=== PATIENT | male | born 1965 | race Caucasian/White ===

== ENCOUNTER 2021-03-09 09:29 | Inpatient (IN) | payer MEDICARE, MEDICAID, SELFPAY ==
[2021-03-09 08:55] VITALS: BMI 21.8
[2021-03-09 09:39] VITALS: BP 110/70; PULSE 97; RESP 20; TEMP 35.9; O2SAT 98
--- NOTE | 2021-03-09 09:45 | PC.NURSE ---
Addendum entered by Ella Mathur LPN 03/09/21 11:01: CIWA SCORE NOW AT A 0, PT ASLEEP IN BED IN ROOM, RESP EVEN ET UNLABORED Original Note: CIWA SCORE 13---ATIVAN 2 MG GIVEN PO PER PROTOCOL, PT TREMULOUS, C/O GENERALIZED ANXIETY. WILL CONT TO MONITOR FOR DESIRED MED EFFECTIVENESS.
[2021-03-09] MEDS: nicotine 21 mg Patch 1 PATCH TRANSDERMA (10:12)
[2021-03-09] MEDS: LORazepam 2 mg Tablet PO ×2 (10:12→19:59)
--- NOTE | 2021-03-09 12:39 | PM.NHP ---
Providers/Chief Complaint Admitting Physician: Myrna Guzman DO Primary Care Provider: Carroll Mendes Chief Complaint: Suicidal ideation, depression HPI NPU History of Present Illness Kenny Herrera is a 55 year old male with history of alcohol abuse and depression [facility] with report of alcohol withdrawal and suicidal ideation. Patient states that his last drink was 9 days ago and currently denies any withdrawal symptoms but states that he was drinking a 12 pack a day for several years. Patient's medical work-up from outlying emergency department was reviewed as part of this evaluation. Patient was noted to be positive for THC. Patient currently denying any suicidal ideation but states that he has intermittent thoughts about not wanting to be alive but denies any past suicide attempts or self-harm behavior. He reports daily low mood, decreased energy and interest in his usual activities, decreased appetite and difficulty with sleep related to his mood symptoms. Patient denies any perceptual disturbances, denies any auditory or visual hallucinations, denies any delusions. Denies any history of manic or hypomanic episodes. Patient reports occasional anxiety symptoms but denies any sustained excessive worry or difficulty controlling his worrying, denies any panic symptoms or panic attacks. Patient denies any past or recent treatment with an antidepressant and denies any history of psychiatric hospitalization. Review of Systems General: Reports: 10 or more systems reviewed and unremarkable except in HPI and below Meds NPU Home Medications Medication Instructions Recorded Confirmed Last Taken Type fluticasone propionate [Flonase] 2 spray INTRANASAL DAILY 03/09/21 03/09/21 Unknown History gabapentin 100 mg PO TID 03/09/21 03/09/21 Unknown History tamsulosin [Flomax] 0.8 mg PO DAILY 03/09/21 03/09/21 Unknown History tramadol 50 mg PO BID PRN 03/09/21 03/09/21 Unknown History trazodone 25 mg PO BEDTIME 03/09/21 03/09/21 Unknown History Allergies Allergy/AdvReac Type Severity Reaction Status Date / Time codeine Allergy Unknown Verified 03/09/21 10:57 doxycycline Allergy Unknown Verified 03/09/21 10:57 morphine Allergy Unknown Verified 03/09/21 10:57 duloxetine AdvReac ADR-Anxiety Verified 03/09/21 10:45 [facility] NPU Other Psychiatric History: Other Psychiatric History: Denies any history of psychiatric treatment Denies any history of psychiatric hospitalization Denies any history of suicide attempt or self-harm behavior Mental Status Exam MSE Comments: Appears older than stated age, lying in his bed, calm, cooperative, tired appearing, good eye contact Psychomotor activity is decreased, no agitation Speech is low volume, somewhat slow, spontaneous, fair articulation, not pressured I feel sad, congruent affect, not labile Alert and oriented to person, place, time, situation Memory and concentration are fair to intact per interview Intellectual functioning appears to be average based on vocabulary, interview Thought process, linear, no flight of ideas, no looseness of associations Thought content, no delusions, no hallucinations, no suicidal or homicidal ideation Insight and judgment appear to be fair to intact Vitals/I&O/Wt Last Vital Signs Temp 96.6 F L 03/09/21 09:39 Pulse 97 03/09/21 09:39 Resp 20 H 03/09/21 09:39 BP 110/70 03/09/21 09:39 Pulse Ox 98 03/09/21 09:39 Weight last 48 hrs Weight 65.136 kg Weight 65.136 kg A&P Assessment and plan (1) Alcohol abuse: Status: Acute (2) Cannabis abuse: Status: Acute (3) Depressive disorder: Status: Acute (4) Suicidal ideation: Status: Acute Additional A&P Information Patient with alcohol use disorder as well as cannabis abuse presented to an [facility] emergency department with suicidal ideation and reported longstanding severe depression with no medication treatment. Patient continues to report intermittent suicidal thoughts although no past history of suicide attempts or self-harm behavior. Patient would likely benefit from medication stabilization and coordination for follow-up care. INVOLUNTARY ADMIT to inpatient psychiatry START Lexapro 10 mg daily targeting mood Encouraged patient to participate in unit activities to include group sessions, unit milieu Coordinate with psychiatric social worker for post discharge behavioral health follow-up as well as substance counseling/treatment Involuntary Hold Information 96 Hour Hold: 96 Hour Involuntary Admission: No Attestations NPU Medical Necessity Statement*: Psychiatric hospitalization indicated for medication stabilization, coordination for safe discharge Anticipate hospital stay to exceed 2 midnights Time Spent in Patient Care: Greater than 35 minutes (>than 50% of time spent in counselling and/or direct pt care on unit). Coding Level of Care Code Acute Weapons Mechanic for [facility] [facility] Diagnoses Alcohol abuse F10.10 Cannabis abuse F12.10 Depressive disorder F32.9 Suicidal ideation R45.852
[2021-03-09] MEDS: escitalopram 10 mg Tablet PO (12:45)
[2021-03-09 14:00] VITALS: BP 101/66; PULSE 85; RESP 18; TEMP 36.1; O2SAT 97
[2021-03-09] MEDS: gabapentin 100 mg Capsule PO ×2 (14:37→19:59)
[2021-03-09] MEDS: trazodone 50 mg Tablet 25 MG PO (19:58)
[2021-03-09 22:00] VITALS: BP 108/73; PULSE 75; RESP 18; TEMP 36.9; O2SAT 97
[2021-03-10 06:00] VITALS: BP 94/59; PULSE 71; RESP 18; TEMP 36.6; O2SAT 95
[2021-03-10] MEDS: thiamine 100 mg Tablet PO (08:15)
[2021-03-10] MEDS: gabapentin 100 mg Capsule PO ×3 (08:15→20:20)
[2021-03-10] MEDS: folic acid 1 mg Tablet PO (08:15)
[2021-03-10] MEDS: multivitamin therapeutic Tablet 1 TAB PO (08:15)
[2021-03-10] MEDS: tamsulosin 0.4 mg Capsule 0.8 MG PO (08:16)
[2021-03-10] MEDS: escitalopram 10 mg Tablet PO (08:16)
[2021-03-10] MEDS: fluticasone nasal spray 16gm Btl 2 SPRAY INTRANASAL (08:16)
--- NOTE | 2021-03-10 09:38 | PM.NPN ---
Subjective NPU Subjective: Interval history: Continues to report depressive symptoms but currently denying any suicidal ideation Reports that his appetite has been improving Continues to report ongoing anxiety symptoms exacerbated by ongoing life stress Denies any interval psychotic symptoms Reports tolerating medication well with no reports of any medication side effects Per staff, no interval behavioral disturbances Mental Status Exam MSE Comments: Lying in bed, tired appearing, appropriately dressed, unkempt, disheveled, appears older than stated age, good eye contact Psychomotor activity is decreased, no agitation Speech is low volume, somewhat slow, spontaneous, fair articulation, not pressured I feel the same, congruent affect, not labile Alert and oriented to person, place, time, situation Memory and concentration are fair to intact per interview Thought process, linear, no flight of ideas, no looseness of associations Thought content, no delusions, no hallucinations, no suicidal or homicidal ideation Insight and judgment appear to be fair to intact Vitals/I&O/Wt Last Vital Signs Temp 97.9 F 03/10/21 06:00 Pulse 71 03/10/21 06:00 Resp 18 03/10/21 06:00 BP 94/59 03/10/21 06:00 Pulse Ox 95 03/10/21 06:00 Weight last 48 hrs Weight 65.136 kg Weight 65.136 kg A&P Assessment and plan (1) Suicidal ideation: Status: Acute (2) Depressive disorder: Status: Acute (3) Alcohol abuse: Status: Acute (4) Cannabis abuse: Status: Acute Additional A&P Information Reports ongoing depression and anxiety, denies any interval suicidal ideation CONTINUE current medication, continue to monitor Involuntary Hold Information 96 Hour Hold: 96 Hour Involuntary Admission: No Attestations NPU Medical Necessity Statement*: Continues to require psychiatric hospitalization for medication stabilization Coding Level of Care Code Acute Event Marketing Assistant for [facility] Fwd Diagnoses Suicidal ideation R45.851 Depressive disorder F32.9 Alcohol abuse F10.10 Cannabis abuse F12.10
--- NOTE | 2021-03-10 10:30 | PC.NURSE ---
pt has been in bed resting most of the day, pleasant with staff interaction. took morning medications without incident.
[2021-03-10 14:00] VITALS: BP 106/68; PULSE 87; RESP 17; TEMP 36.6; O2SAT 90
[2021-03-10 14:22] VITALS: O2SAT 98
[2021-03-10] MEDS: trazodone 50 mg Tablet 25 MG PO (20:21)
[2021-03-10 21:12] VITALS: BP 115/75; PULSE 74; RESP 15; TEMP 36.5; O2SAT 98
[2021-03-10] MEDS: acetaminophen 325 mg Tablet 650 MG PO (21:16)
[2021-03-11 06:00] VITALS: BP 97/59; PULSE 66; RESP 17; TEMP 36.5; O2SAT 96
[2021-03-11] MEDS: multivitamin therapeutic Tablet 1 TAB PO (09:29)
[2021-03-11] MEDS: escitalopram 10 mg Tablet PO (09:29)
[2021-03-11] MEDS: tamsulosin 0.4 mg Capsule 0.8 MG PO (09:29)
[2021-03-11] MEDS: gabapentin 100 mg Capsule PO ×3 (09:29→20:59)
[2021-03-11] MEDS: thiamine 100 mg Tablet PO (09:29)
[2021-03-11] MEDS: folic acid 1 mg Tablet PO (09:29)
--- NOTE | 2021-03-11 12:35 | PM.NPN ---
Subjective NPU Subjective: Interval history: Take this today reporting that he has struggled with drinking since he was 12 years old and he also has had depression both then and now as he gets frustrated with himself about his choices. He reports that he is doing okay with the Lexapro but endorses with a significant probably dealing with his gait unable to sleep and he noted how poorly he feels when he is unable to sleep. We discussed the risk-benefit alternatives of a trial of Seroquel which she noted would also help with his mood swings and he understood agreed proceed as documented in his note. We discussed these mood swings but also identified importantly. Sobriety in place before something like those mood swings is interpreted without appreciating the role alcohol could be playing. Mental Status Exam MSE Comments: This is a slender white male in hospital scrubs with limited grooming but adequate eye contact. No abnormal movements except for psychomotor retardation as well as a significant resting tremor much more prominent in his right hand/arm. Cooperative with exam in no acute distress. Speech was slightly decreased rate and volume. Mood described as okay I guess affect subdued. Thought process organized. Thought content: Patient denied suicidal or homicidal ideation, there were no delusions reportedly, he denied any auditory visualizations. Attention and concentration were intact and memory appeared mostly reliable but none were formally tested easily and oriented x3. Insight and judgment are limited and impulse control is limited. Vitals/I&O/Wt Last Vital Signs Temp 97.7 F 03/11/21 06:00 Pulse 66 03/11/21 06:00 Resp 17 03/11/21 06:00 BP 97/59 03/11/21 06:00 Pulse Ox 96 03/11/21 06:00 A&P Assessment and plan (1) Suicidal ideation: Status: Acute (2) Depressive disorder: Status: Acute (3) Alcohol abuse: Status: Acute (4) Cannabis abuse: Status: Acute Additional A&P Information This is a 55-year-old white male with a long history of depression and alcohol abuse who presents 11 days sober with slow adjustment to sobriety currently struggling with sleep and depression. 1. Continue current medication. Start Seroquel 50 mg p.o. nightly. 2. Continue every 15 minute checks for safety. 3. Encourage individual, group and milieu therapies. 4. Encourage sober living treatment after discharge at the highest level of care to which he is willing to commit. Involuntary Hold Information 96 Hour Hold: 96 Hour Involuntary Admission: No Attestations NPU Medical Necessity Statement*: Inpatient hospitalization is medically necessary and the clinically appropriate intervention at this time. We will monitor medications and make changes as indicated. Likely length of stay 1-3 days. Coding Level of Care Code Acute Facilities Director for [facility] Fwd Diagnoses Suicidal ideation R45.851 Depressive disorder F32.9 Alcohol abuse F10.10 Cannabis abuse F12.10
[2021-03-11] MEDS: nicotine 21 mg Patch 1 PATCH TRANSDERMA (13:08)
[2021-03-11 14:00] VITALS: BP 119/79; PULSE 88; RESP 16; TEMP 36.6; O2SAT 97
[2021-03-11 21:01] VITALS: BP 115/75; PULSE 80; RESP 18; TEMP 36; O2SAT 99
[2021-03-11] MEDS: quetiapine 25 mg Tablet 50 MG PO (21:41)
[2021-03-12 06:00] VITALS: BP 105/70; PULSE 94; RESP 15; TEMP 37.1; O2SAT 95
[2021-03-12] MEDS: tamsulosin 0.4 mg Capsule 0.8 MG PO (08:45)
[2021-03-12] MEDS: nicotine 21 mg Patch 1 PATCH TRANSDERMA (08:45)
[2021-03-12] MEDS: multivitamin therapeutic Tablet 1 TAB PO (08:45)
[2021-03-12] MEDS: escitalopram 10 mg Tablet PO (08:45)
[2021-03-12] MEDS: gabapentin 100 mg Capsule PO ×2 (08:45→15:07)
[2021-03-12] MEDS: folic acid 1 mg Tablet PO (08:46)
[2021-03-12] MEDS: thiamine 100 mg Tablet PO (08:46)
--- NOTE | 2021-03-12 08:55 | PC.SOCIAL ---
*IMM* Patient received Important Message from [employer]. Signed and placed in the chart. Patient received a copy.
[2021-03-12] MEDS: fluticasone nasal spray 16gm Btl 2 SPRAY INTRANASAL (08:56)
--- NOTE | 2021-03-12 12:41 | P.DS_ITS ---
Diagnoses at Discharge Discharge Diagnosis (1) Suicidal ideation: Status: Acute (2) Depressive disorder: Status: Acute (3) Alcohol abuse: Status: Acute (4) Cannabis abuse: Status: Acute Reason for Visit Reason for Visit: Suicidal ideation, depression Brief History: History of Present Illness Kenny Herrera is a 55 year old male with history of alcohol abuse and depression presenting to an [facility] emergency department with report of alcohol withdrawal and suicidal ideation. Patient states that his last drink was 9 days ago and currently denies any withdrawal symptoms but states that he was drinking a 12 pack a day for several years. [facility] was reviewed as part of this evaluation. Patient was noted to be positive for THC. Patient currently denying any suicidal ideation but states that he has intermittent thoughts about not wanting to be alive but denies any past suicide attempts or self-harm behavior. He reports daily low mood, decreased energy and interest in his usual activities, decreased appetite and difficulty with sleep related to his mood symptoms. Patient denies any perceptual disturbances, denies any auditory or visual hallucinations, denies any delusions. Denies any history of manic or hypomanic episodes. Patient reports occasional anxiety symptoms but denies any sustained excessive worry or difficulty controlling his worrying, denies any panic symptoms or panic attacks. Patient denies any past or recent treatment with an antidepressant and denies any history of psychiatric hospitalization. Hospital Course Hospital Course Kenny presented to an outside hospital with depression, alcohol and other drug use issues, and concerns for lethality. He was transferred to [facility] to [facility] for definitive treatment of those issues. On the unit he slowly acclimated to the individual, group milieu therapies provided. In addition he was started on Lexapro and Seroquel and showed a positive response. He was able to contract for safety prior to discharge. During the hospitalization, patient had routine laboratory studies which were within normal limits except for few outliers. Additionally there was a general medical evaluation which was also within normal limits and revealed no new acute processes. Discharge Summary: At the time of discharge, he denied psychosis or lethality. Mood and anxiety were well managed. Patient endorsed a plan to avoid all drugs of abuse and follow-up with the aftercare recommendations of the treatment team. Patient was evaluated and deemed to be absent credible lethality, and had achieved the maximum benefit from an inpatient hospitalization, so was discharged. Involuntary Hold Information 96 Hour Hold: 96 Hour Involuntary Admission: No Mental Status Exam MSE Comments: This is a slender white male in hospital scrubs with adequate grooming and eye contact. No abnormal movements except for psychomotor retardation as well as a significant resting tremor much more prominent in his right hand/arm. Cooperative with exam in no acute distress. Speech was more normal rate and volume. Mood described as better affect less subdued. Thought process organized. Thought content: Patient denied suicidal or homicidal ideation, there were no delusions reportedly, he denied any auditory visualizations. Attention and concentration were intact and memory appeared mostly reliable but none were formally tested easily and oriented x3. Insight and judgment are improving and impulse control is limited, but improving. Discharge Data Vitals: Last Vital Signs Temp 98.8 F 03/12/21 06:00 Pulse 94 03/12/21 06:00 Resp 15 03/12/21 06:00 BP 105/70 03/12/21 06:00 Pulse Ox 95 03/12/21 06:00 Discharge Plan Discharge Patient Disposition: Home Condition: Stable Prescriptions: New quetiapine 25 mg Tablet 50 mg PO BEDTIME 30 Days Qty: 30 RF: 1 escitalopram oxalate 10 mg Tablet 10 mg PO DAILY 30 Days Qty: 30 RF: 1 Vitamin B-1 (mononitrate) 100 mg Tablet 100 mg PO DAILY 30 Days Qty: 30 RF: 1 Continued trazodone 50 mg Tablet 25 mg PO BEDTIME RF: 0 tramadol 50 mg Tablet 50 mg PO BID PRN (Reason: Breakthrough Pain, Moderate) RF: 0 gabapentin 100 mg Tablet 100 mg PO TID RF: 0 fluticasone propionate 50 mcg/actuation [place],Suspension 2 spray INTRANASAL DAILY RF: 0 Flomax 0.4 mg Capsule 0.8 mg PO DAILY RF: 0 Discharge Orders: Discharge Order (Routine); Ordered 03/12/21 Ordered By: Mg Stout Referrals: [facility] [Other] (Please call to set up inhome services such as a personal banking advisor or housekeeper head. ) Alcohol Anonymous Meeting [Other] (Meetings M-F 6:30 PM) [facility] [Outside] [facility] [Outside] [facility] [Outside] Discharge Diet: Regular Discharge Activity: Resume usual activity Patient Instructions: Opioid Safety Discharge Attestations NPU Time Spent in Discharge Care*: less than 30 min Specific Discharge Activities: Specific discharge activities: educating patient, discussing with cyanide case hardener/social workers/dc planners, documenting/other paperwork and evaluating patient/reviewing data Coding Level of Care Code Acute Chg FW DC note Diagnoses Suicidal ideation R45.851 Depressive disorder F32.9 Alcohol abuse F10.10 Cannabis abuse F12.10
[2021-03-12 13:04] VITALS: BP 105/70; PULSE 94; RESP 15; TEMP 37.1; O2SAT 95
[2021-03-12 14:00] VITALS: BP 111/74; PULSE 93; RESP 16; TEMP 36.8; O2SAT 97
== END 2021-03-12 19:01 | disposition home or self-care (01) | DRG 881 ==
PROVIDERS: Admitting Provider Psychiatry & Neurology Psychiatry; Family Provider Nurse Practitioner Family; PCP Nurse Practitioner Family; Visit Provider Psychiatry & Neurology Psychiatry
DX: F32.9 Major depressive disorder, single episode, unspecified (principal); R45.851 Suicidal ideations; F10.139 Alcohol abuse with withdrawal, unspecified; F12.10 Cannabis abuse, uncomplicated; F41.9 Anxiety disorder, unspecified; Z72.820 Sleep deprivation

== ENCOUNTER 2022-06-15 19:02 | Emergency (ER) | payer MEDICARE, MEDICAID, SELFPAY ==
[2022-06-15 19:13] VITALS: BP 89/64; PULSE 66; RESP 16; TEMP 36.6; O2SAT 97; BMI 25.0
--- NOTE | 2022-06-15 19:17 | ED_ITS ---
Documented by User: Salvatore Ny DO 06/16/22 05:54 HPI - General Adult General: Chief complaint: General Medical Stated complaint: ETOH Time Seen by Provider: 06/15/22 19:09 History of Present Illness: 56-year-old male brought in by EMS. EMS was called by the neighbors because the patient was extremely intoxicated been drinking all day. They report that when they went to his house marijuana smoking was ruled out. Patient will not provide any information was just located. It is unknown how much he actually drinks today. It was believed that patient has a history of significant alcohol abuse. No other HPI is available Review of Systems General: Reports: ROS unobtainable due to mental status (Patient obviously intoxicated and high) Physical Exam Const: GENERAL APPEARANCE: disheveled NUTRITIONAL APPEARANCE: underweight OTHER: Obviously intoxicated, high smells of alcohol and marijuana HENMT: COMMON NORMALS: normocephalic and atraumatic HEAD & SCALP: normocephalic and atraumatic Resp: COMMON NORMALS: normal respiratory effort, No use of accessory muscles and clear to auscultation bilaterally AUSCULTATION: clear to auscultation bilaterally Cardio: COMMON NORMALS: regular rate and regular rhythm RATE: regular rate RHYTHM: regular rhythm GI: COMMON NORMALS: Soft to palpation and non-tender PALPATION: Yes Soft to palpation Extremity: COMMON NORMALS: capillary refill normal and no pedal edema Neuro: OTHER: Limited due to patient being severely intoxicated and high, no obvious deficits Skin: COMMON NORMALS: no rashes or lesions noted GENERAL SKIN EXAM: no rashes or lesions noted Course Vital Signs: Vital signs: Vital Signs Temperature 97.9 F 06/15/22 19:13 Pulse Rate 96 06/16/22 06:00 Respiratory Rate 16 06/15/22 22:44 Blood Pressure 101/72 06/16/22 06:00 Pulse Oximetry 96 06/16/22 06:00 Oxygen Delivery Me thod 06/16/22 04:00 MDM - General Adult Medical Decision Making When patient arrived he was getting up to urinate an got out of the bed without notifying anybody and fell. When he fell he hit his head and suffered 2 small lacerations that were stapled. Patient had a CT that showed no intracranial findings. 0500 Patient is starting to sober up. I suspect that he is near his baseline alcohol level. Patient reports that he drinks a whole lot. Patient is unsure of phone numbers of any of his neighbors or friends at this time and does not have his phone. We are attempting to find a ride for him home. Lab Data : 06/15/22 19:35 06/15/22 19:[address] 06/15/22 22:24 IMPRESSION: No acute intracranial abnormality. Laboratory Results WBC 10.4 10^3/uL (4.0-10.0) H 06/15/22 19:35 RBC 5.17 10^6/uL (4.1-5.3) 06/15/22 19:35 Hgb 16.4 g/dL (11.7-16.6) 06/15/22 19:35 Hct 48.0 % (42.0-52.0) 06/15/22 19:35 MCV 92.8 fl (80-94) 06/15/22 19:35 MCH 31.7 pg (28.0-34.0) 06/15/22 19:35 MCHC 34.2 g/dL (30.0-36.0) 06/15/22 19:35 RDW 12.3 % (12.1-15.1) 06/15/22 19:35 Plt Count 226 10^3/cmm (130-400) 06/15/22 19:35 MPV 10.5 fL (7.4-10.4) H 06/15/22 19:35 Neut % (Auto) 50.2 % 06/15/22 19:35 Lymph % (Auto) 38.7 % 06/15/22 19:35 [place] % (Auto) 7.8 % 06/15/22 19:35 Eos % (Auto) 2.1 % 06/15/22 19:35 Baso % (Auto) 0.9 % 06/15/22 19:35 Neut # (Auto) 5.21 10^3/uL (1.8-7.7) 06/15/22 19:35 Lymph # (Auto) 4.0 10^3/uL (0.8-4.8) 06/15/22 19:35 [place] # (Auto) 0.8 10^3/uL (0.2-0.9) 06/15/22 19:35 Eos # (Auto) 0.2 10^3/uL (0.0-0.8) 06/15/22 19:35 Baso # (Auto) 0.1 10^3/uL (0.0-0.1) 06/15/22 19:35 Nucleated RBC % (auto) 0 % 06/15/22 19:35 Nucleated RBCs # 0.0 /100WBC 06/15/22 19:35 Sodium 136 mmol/L (136-145) 06/15/22 19:35 Potassium 3.6 mmol/L (3.5-5.1) 06/15/22 19:35 Chloride 100 mmol/L (98-107) 06/15/22 19:35 Carbon Dioxide 23 mmol/L (22-29) 06/15/22 19:35 Anion Gap 16.6 (5-19) 06/15/22 19:35 BUN 8 mg/dL (6-20) 06/15/22 19:35 Creatinine 0.6 mg/dL (0.7-1.2) L 06/15/22 19:35 GFR Calculation 138.4 mL/min (90-130) H 06/15/22 19:35 Glucose 97 mg/dL (65-115) 06/15/22 19:35 Calculated Osmolality 280 mOsm/kg (285-295) L 06/15/22 19:35 Calcium 9.0 mg/dL (8.5-10.5) 06/15/22 19:35 Total Bilirubin 0.6 mg/dL (0.15-1.2) 06/15/22 19:35 AST 49 U/L (0-40) H 06/15/22 19:35 ALT 58 U/L (0-41) H 06/15/22 19:35 Alkaline Phosphatase 47 U/L (40-130) 06/15/22 19:35 Total Protein 7.0 g/dL (6.6-8.7) 06/15/22 19:35 Albumin 4.2 g/dL (3.5-5.2) 06/15/22 19:35 Globulin 2.8 g/dL (1.3-4.6) 06/15/22 19:35 Urine Color Colorless (Yellow) 06/15/22 20:27 Urine Appearance Clear (CLEAR) 06/15/22 20:27 Urine pH 6 (5-7) 06/15/22 20:27 Ur Specific [place] 1.005 (1.005-1.030) 06/15/22 20:27 Urine Protein Neg (Negative) 06/15/22 20:27 Urine Glucose (UA) Norm (Normal) 06/15/22 20:27 Urine Ketones Negative (Negative) 06/15/22 20:27 Urine Blood Neg (Negative) 06/15/22 20:27 Urine Nitrate Negative (Negative) 06/15/22 20:27 Urine Bilirubin Neg (Negative) 06/15/22 20:27 Urine Urobilinogen Norm mg/dL (Negative) 06/15/22 20:27 Ur Leukocyte Esterase Negative (Negative) 06/15/22 20:27 Urine Opiates Screen Negative ng/mL (Negative) 06/15/22 20:27 Ur Barbiturates Screen Negative ng/mL (Negative) 06/15/22 20:27 Ur Phencyclidine Scrn Negative ng/mL (Negative) 06/15/22 20:27 Ur Amphetamines Screen Negative ng/mL (Negative) 06/15/22 20:27 U Benzodiazepines Scrn Negative ng/mL (Negative) 06/15/22 20:27 Urine Cocaine Screen Negative ng/mL (Negative) 06/15/22 20:27 U Marijuana (THC) Screen Negative ng/mL (Negative) 06/15/22 20:27 Ethyl Alcohol 226 mg/dL (0-10) H 06/16/22 01:02 Discharge Plan Discharge Patient Disposition: Home Clinical Impression: Acute alcoholic intoxication in alcoholism (blood level over 0.3), Alcohol abuse Condition: Stable Prescriptions: No Action trazodone 50 mg Tablet 25 mg PO BEDTIME tramadol 50 mg Tablet 50 mg PO BID PRN (Reason: Breakthrough Pain, Moderate) gabapentin 100 mg Tablet 100 mg PO TID fluticasone propionate 50 mcg/actuation [place],Suspension 2 spray INTRANASAL DAILY Flomax 0.4 mg Capsule 0.8 mg PO DAILY quetiapine 25 mg Tablet 50 mg PO BEDTIME 30 Days Qty: 30 1RF escitalopram oxalate 10 mg Tablet 10 mg PO DAILY 30 Days Qty: 30 1RF Vitamin B-1 (mononitrate) 100 mg Tablet 100 mg PO DAILY 30 Days Qty: 30 1RF Discharge Orders: Discharge ED (Routine); Ordered 06/16/22 Ordered By: Roque Aguirre Referrals: Carroll Mendes, MARY [Primary Care Provider] - Discharge Diet: Advance as tolerated Discharge Activity: Increase activity as tolerated Patient Instructions: Opioid Safety, Pain Management Sign Out Sign Out Data: Patient Sign Out occurred on 06/16/22 at 06:07. Patient's care was discussed, and care was transferred from to Roque Aguirre DO. Coding Level of Care Code ED Antique Clock Repairer for Chg Fwd Exam Detailed Documented by User: Roque Aguirre DO 06/16/22 07:27 HPI - General Adult General: Chief complaint: General Medical Stated complaint: ETOH Time Seen by Provider: 06/15/22 19:09 Course Vital Signs: Vital signs: Vital Signs Temperature 97.9 F 06/15/22 19:13 Pulse Rate 96 06/16/22 06:00 Respiratory Rate 16 06/15/22 22:44 Blood Pressure 101/72 06/16/22 06:00 Pulse Oximetry 96 06/16/22 06:00 Oxygen Delivery Me thod 06/16/22 04:00 MDM - General Adult Medical Decision Making When patient arrived he was getting up to urinate an got out of the bed without notifying anybody and fell. When he fell he hit his head and suffered 2 small lacerations that were stapled. Patient had a CT that showed no intracranial findings. 0500 Patient is starting to sober up. I suspect that he is near his baseline alcohol level. Patient reports that he drinks a whole lot. Patient is unsure of phone numbers of any of his neighbors or friends at this time and does not have his phone. We are attempting to find a ride for him home. 06/16/2022 7:26 AM Care assumed at change of shift patient is awake and alert he is having some tremor. He is wanting to go home. He states he has not drank in 19 days and I asked him about last night he just dismisses it. Encouraged him to consider stopping drinking. His reaction indicates he has no intent or desire to stop. He just wants to go home at this point. Patient will be discharged home I did encourage him to consider AA or outpatient treatment options. Medical Records I reviewed the patient's medical records. Lab Data I reviewed the patient's lab results. : 06/15/22 19:35 06/15/22 19:[address] 06/15/22 22:24 IMPRESSION: No acute intracranial abnormality. Laboratory Results WBC 10.4 10^3/uL (4.0-10.0) H 06/15/22 19:35 RBC 5.17 10^6/uL (4.1-5.3) 06/15/22 19:35 Hgb 16.4 g/dL (11.7-16.6) 06/15/22 19:35 Hct 48.0 % (42.0-52.0) 06/15/22 19:35 MCV 92.8 fl (80-94) 06/15/22 19:35 MCH 31.7 pg (28.0-34.0) 06/15/22 19:35 MCHC 34.2 g/dL (30.0-36.0) 06/15/22 19:35 RDW 12.3 % (12.1-15.1) 06/15/22 19:35 Plt Count 226 10^3/cmm (130-400) 06/15/22 19:35 MPV 10.5 fL (7.4-10.4) H 06/15/22 19:35 Neut % (Auto) 50.2 % 06/15/22 19:35 Lymph % (Auto) 38.7 % 06/15/22 19:35 [place] % (Auto) 7.8 % 06/15/22 19:35 Eos % (Auto) 2.1 % 06/15/22 19:35 Baso % (Auto) 0.9 % 06/15/22 19:35 Neut # (Auto) 5.21 10^3/uL (1.8-7.7) 06/15/22 19:35 Lymph # (Auto) 4.0 10^3/uL (0.8-4.8) 06/15/22 19:35 [place] # (Auto) 0.8 10^3/uL (0.2-0.9) 06/15/22 19:35 Eos # (Auto) 0.2 10^3/uL (0.0-0.8) 06/15/22 19:35 Baso # (Auto) 0.1 10^3/uL (0.0-0.1) 06/15/22 19:35 Nucleated RBC % (auto) 0 % 06/15/22 19:35 Nucleated RBCs # 0.0 /100WBC 06/15/22 19:35 Sodium 136 mmol/L (136-145) 06/15/22 19:35 Potassium 3.6 mmol/L (3.5-5.1) 06/15/22 19:35 Chloride 100 mmol/L (98-107) 06/15/22 19:35 Carbon Dioxide 23 mmol/L (22-29) 06/15/22 19:35 Anion Gap 16.6 (5-19) 06/15/22 19:35 BUN 8 mg/dL (6-20) 06/15/22 19:35 Creatinine 0.6 mg/dL (0.7-1.2) L 06/15/22 19:35 GFR Calculation 138.4 mL/min (90-130) H 06/15/22 19:35 Glucose 97 mg/dL (65-115) 06/15/22 19:35 Calculated Osmolality 280 mOsm/kg (285-295) L 06/15/22 19:35 Calcium 9.0 mg/dL (8.5-10.5) 06/15/22 19:35 Total Bilirubin 0.6 mg/dL (0.15-1.2) 06/15/22 19:35 AST 49 U/L (0-40) H 06/15/22 19:35 ALT 58 U/L (0-41) H 06/15/22 19:35 Alkaline Phosphatase 47 U/L (40-130) 06/15/22 19:35 Total Protein 7.0 g/dL (6.6-8.7) 06/15/22 19:35 Albumin 4.2 g/dL (3.5-5.2) 06/15/22 19:35 Globulin 2.8 g/dL (1.3-4.6) 06/15/22 19:35 Urine Color Colorless (Yellow) 06/15/22 20:27 Urine Appearance Clear (CLEAR) 06/15/22 20:27 Urine pH 6 (5-7) 06/15/22 20:27 Ur Specific [place] 1.005 (1.005-1.030) 06/15/22 20:27 Urine Protein Neg (Negative) 06/15/22 20:27 Urine Glucose (UA) Norm (Normal) 06/15/22 20:27 Urine Ketones Negative (Negative) 06/15/22 20:27 Urine Blood Neg (Negative) 06/15/22 20:27 Urine Nitrate Negative (Negative) 06/15/22 20:27 Urine Bilirubin Neg (Negative) 06/15/22 20:27 Urine Urobilinogen Norm mg/dL (Negative) 06/15/22 20:27 Ur Leukocyte Esterase Negative (Negative) 06/15/22 20:27 Urine Opiates Screen Negative ng/mL (Negative) 06/15/22 20:27 Ur Barbiturates Screen Negative ng/mL (Negative) 06/15/22 20:27 Ur Phencyclidine Scrn Negative ng/mL (Negative) 06/15/22 20:27 Ur Amphetamines Screen Negative ng/mL (Negative) 06/15/22 20:27 U Benzodiazepines Scrn Negative ng/mL (Negative) 06/15/22 20:27 Urine Cocaine Screen Negative ng/mL (Negative) 06/15/22 20:27 U Marijuana (THC) Screen Negative ng/mL (Negative) 06/15/22 20:27 Ethyl Alcohol 226 mg/dL (0-10) H 06/16/22 01:02 Discharge Plan Discharge Patient Disposition: Home Clinical Impression: Acute alcoholic intoxication in alcoholism (blood level over 0.3), Alcohol abuse Condition: Stable Prescriptions: No Action trazodone 50 mg Tablet 25 mg PO BEDTIME tramadol 50 mg Tablet 50 mg PO BID PRN (Reason: Breakthrough Pain, Moderate) gabapentin 100 mg Tablet 100 mg PO TID fluticasone propionate 50 mcg/actuation [place],Suspension 2 spray INTRANASAL DAILY Flomax 0.4 mg Capsule 0.8 mg PO DAILY quetiapine 25 mg Tablet 50 mg PO BEDTIME 30 Days Qty: 30 1RF escitalopram oxalate 10 mg Tablet 10 mg PO DAILY 30 Days Qty: 30 1RF Vitamin B-1 (mononitrate) 100 mg Tablet 100 mg PO DAILY 30 Days Qty: 30 1RF Discharge Orders: Discharge ED (Routine); Ordered 06/16/22 Ordered By: Roque Aguirre Referrals: Carroll Mendes FNP [Primary Care Provider] - Discharge Diet: Advance as tolerated Discharge Activity: Increase activity as tolerated Patient Instructions: Opioid Safety, Pain Management Sign Out Sign Out Data: Patient Sign Out occurred on 06/16/22 at 06:07. Patient's care was discussed, and care was transferred from to Roque Aguirre DO. Coding Level of Care Code ED Antique Clock Repairer for Chg Fwd Exam Detailed
[2022-06-15 19:23] VITALS: BP 87/63; PULSE 65; RESP 16; O2SAT 97
[2022-06-15 19:40] LABS: Basophils # 0.1 10^3/uL (0.0-0.1); Basophils % 0.9 %; Eosinophils # 0.2 10^3/uL (0.0-0.8); Eosinophils % 2.1 %; Hemoglobin 16.4 g/dL (11.7-16.6); Lymphocytes % 38.7 %; Mean Corpuscular HGB Conc 34.2 g/dL (30.0-36.0); Mean Corpuscular Hemoglobin 31.7 pg (28.0-34.0); Mean Corpuscular Volume 92.8 fl (80-94); Mean Platelet Volume 10.5 fL (7.4-10.4); Monocytes # 0.8 10^3/uL (0.2-0.9); Monocytes % 7.8 %; Neutrophils # 5.21 10^3/uL (1.8-7.7); Neutrophils % 50.2 %; Nucleated Red Blood Cells % 0 %; Platelet Count 226 10^3/cmm (130-400); Red Blood Count 5.17 10^6/uL (4.1-5.3); Red Cell Distribution Width 12.3 % (12.1-15.1); White Blood Count 10.4 10^3/uL (4.0-10.0)
[2022-06-15 20:00] LABS: Alanine Aminotransferase 58 U/L (0-41); Albumin Level 4.2 g/dL (3.5-5.2); Alkaline Phosphatase 47 U/L (40-130); Anion Gap 16.6 (5-19); Aspartate Amino Transferase 49 U/L (0-40); Blood Urea Nitrogen 8 mg/dL (6-20); Carbon Dioxide 23 mmol/L (22-29); Chloride 100 mmol/L (98-107); Globulin 2.8 g/dL (1.3-4.6); Glomerular Filtration Rate 138.4 mL/min (90-130); Glucose 97 mg/dL (65-115); Osmolality Calculated 280 mOsm/kg (285-295); Potassium 3.6 mmol/L (3.5-5.1); Sodium 136 mmol/L (136-145); Total Bilirubin 0.6 mg/dL (0.15-1.2)
[2022-06-15 20:01] LABS: Creatinine Clr Calc Pharmacy 134.7252
[2022-06-15 20:03] LABS: Alcohol Level 428 mg/dL (0-10)
[2022-06-15] MEDS: lactated ringers 1,000 ML 999 ML IV (20:08)
[2022-06-15 20:33] LABS: Add Urine Microscopic? NO; Charge for UA Resulting for Rev
[2022-06-15 20:37] LABS: Bilirubin Urine Neg (Negative); Blood Urine Neg (Negative); Glucose Urine UA Norm (Normal); Ketones Urine Negative (Negative); Leukocyte Esterase Urine Negative (Negative); Nitrate Urine Negative (Negative); Protein Urine Neg (Negative); Specific Gravity, Urine 1.005 (1.005-1.030); Urine Appearance Clear (CLEAR); Urine Color Colorless (Yellow); Urobilinogen Urine Norm (Negative); pH Urine 6 (5-7)
[2022-06-15 20:45] LABS: Amphetamines Screen Urine Negative (Negative); Barbiturates Screen Urine Negative (Negative); Benzodiazepines Screen Urine Negative (Negative); Cocaine Screen Urine Negative (Negative); Opiate Screen Urine Negative (Negative); PCP Screen Urine Negative (Negative); THC Screen Urine Negative (Negative)
--- NOTE | 2022-06-15 22:24 | CTR_ITS ---
PROCEDURE INFORMATION: Exam: CT Head Without Contrast Exam date and time: 06/15/2022 10:30 PM Age: 56 years old Clinical indication: Injury or trauma; Blunt trauma (contusions or hematomas) and laceration; Without residual foreign body; Head, generalized; Patient HX: Fall with lac near vertex. TECHNIQUE: Imaging protocol: Computed tomography of the head without contrast. Radiation optimization: All CT scans at this facility use at least one of these dose optimization techniques: automated exposure control; mA and/or kV adjustment per patient size (includes targeted exams where dose is matched to clinical indication); or iterative reconstruction. COMPARISON: MRI Brachial Plexus w/wo [id number] 02/06/2017 12:38 PM RADIATION DOSE METRICS: Total DLP (mGy-cm): 1191.98 FINDINGS: Brain: Normal. No hemorrhage. Unremarkable white matter. No mass effect. Cerebral ventricles: No ventriculomegaly. Paranasal sinuses: Visualized sinuses are unremarkable. No fluid levels. Mastoid air cells: Visualized mastoid air cells are well aerated. Bones/joints: Unremarkable. No acute fracture. Soft tissues: Unremarkable. CT/CT head wo con* [id number] IMPRESSION: No acute intracranial abnormality.
--- NOTE | 2022-06-15 22:35 | PC.NURSE ---
Incident report filed. PT was found on floor by RN. Pt recieved two lacs on top of head due to fall. Physician and charge nurse notified. CT was ordered.
[2022-06-15 22:44] VITALS: BP 128/78; PULSE 70; RESP 16; O2SAT 98
[2022-06-16 02:20] LABS: Alcohol Level 226 mg/dL (0-10)
[2022-06-16 04:00] VITALS: BP 108/68; PULSE 88; O2SAT 95
[2022-06-16 06:00] VITALS: BP 101/72; PULSE 96; O2SAT 96
[2022-06-16 07:00] VITALS: BP 133/59; PULSE 90; RESP 18; O2SAT 96
== END 2022-06-16 08:07 | disposition home or self-care (01) ==
PROVIDERS: Student in an Organized Health Care Education/Training Program; Emergency Provider Family Medicine; PCP Nurse Practitioner Family
DX: F10.229 Alcohol dependence with intoxication, unspecified (principal); S01.01XA Laceration without foreign body of scalp, initial encounter; Y90.7 Blood alcohol level of 200-239 mg/100 ml
CPT/HCPCS: 12002; 51702; 70450; 80053; 80306; 80307; 81003; 85025; 96360; 99285

== ENCOUNTER 2022-07-08 10:33 | Outpatient (CLI) | payer MEDICARE, MEDICAID, SELFPAY ==
--- NOTE | 2022-07-08 10:53 | MR_ITS ---
WS: [id number] MRI LUMBAR SPINE NONCONTRAST TECHNIQUE: Sagittal T1, T2 and STIR imaging. Axial T1 and T2 imaging. CLINICAL INFORMATION: CLOSED WEDGE COMPRESSION FRACTURE OF L1 VERTEBRA COMPARISON: None. FINDINGS: Mild lumbar curve. No acute compression. No high-grade central canal stenosis. Chronic appearing bico ncave compression anterior wedging at T10. No edema at this level. L1-L2: Normal. L2-L3: No significant disc bulging. Moderate facet arthropathy. Spinal canal and foramen are patent. L3-L4: Mild annular bulging with a shallow central protrusion. Impingement traversing L4 nerve roots bilaterally. Moderate facet arthropathy. Mild LEFT and no RIGHT foraminal narrowing. L4-L5: Mild annular bulging. Mild facet arthropathy. Spinal canal and foramen are patent. Slight narr owing of the LEFT subarticular recess. L5-S1: Mild disc bulging with slight effacement of ventral thecal sac. Small shallow central protrusi on contacts the traversing LEFT greater than RIGHT S1 nerve roots. Mild RIGHT foraminal narrowing. LE FT foramen is patent. Mild facet arthropathy. Small RIGHT renal cyst. Moderate thoracic kyphosis with thoracic spine with chronic anterior wedging visualized at T9 and T10 . MR/MR lumbar spine wo con* [id number] IMPRESSION: 1. Mild lumbar curve. No acute compression. No high-grade central canal stenos is. 2. Chronic appearing anterior wedging with mild biconcave compression at T9 an d T10. No edema. 3. Annular bulging L4-L5 with slight impingement traversing LEFT L5 nerve root . 4. Central disc protrusion L5-S1 impinges the traversing LEFT greater than RIG HT S1 nerve roots. Correlation LEFT S1 nerve root symptoms. Mild to moderate RI GHT L5-S1 foraminal narrowing. 5. Mild annular bulging L3-L4 with slight effacement of ventral thecal sac. Na rrowing of the subarticular recess bilaterally. Mild LEFT foraminal narrowing
== END 2022-07-08 10:34 | disposition home or self-care (01) ==
PROVIDERS: PCP Family Medicine; Visit Provider Registered Nurse
DX: S32.010A Wedge compression fracture of first lumbar vertebra, initial encounter for closed fracture (principal); X58.XXXA Exposure to other specified factors, initial encounter; M51.27 Other intervertebral disc displacement, lumbosacral region; M51.26 Other intervertebral disc displacement, lumbar region
CPT/HCPCS: 72148

== ENCOUNTER → 2022-07-21 16:10 | Outpatient (BNVA) | payer MEDICARE, MEDICAID, SELFPAY | PROVIDERS: PCP Family Medicine; Visit Provider Physician Assistant | DX: M47.816 Spondylosis without myelopathy or radiculopathy, lumbar region (principal); M51.27 Other intervertebral disc displacement, lumbosacral region; R25.1 Tremor, unspecified; F10.229 Alcohol dependence with intoxication, unspecified; M47.812 Spondylosis without myelopathy or radiculopathy, cervical region; M85.88 Other specified disorders of bone density and structure, other site | CPT/HCPCS: 72110; 99203 ==

== ENCOUNTER → 2022-07-29 13:29 | Outpatient (BNVA) | payer MEDICARE, MEDICAID, SELFPAY | PROVIDERS: PCP Family Medicine; Visit Provider Nurse Practitioner | DX: R25.1 Tremor, unspecified (principal); R26.89 Other abnormalities of gait and mobility; R25.8 Other abnormal involuntary movements | CPT/HCPCS: 99204 ==

== ENCOUNTER → 2022-10-21 10:09 | Outpatient (BNVA) | payer MEDICARE, MEDICAID, SELFPAY | PROVIDERS: PCP Family Medicine; Visit Provider Nurse Practitioner | DX: R25.1 Tremor, unspecified (principal); R26.89 Other abnormalities of gait and mobility | CPT/HCPCS: 99213 ==